=== PATIENT | male | born 1980 | race Two or more races ===

== ENCOUNTER 2023-04-21 09:42 | Emergency (ER) | payer BC, OTHER ==
[~2023-04-21] VITALS: Ht 175.3 cm; Wt 84.0 kg
[2023-04-21 11:08] VITALS: BP 117/80; PULSE 125; RESP 18; TEMP 97.4; O2SAT 97
[2023-04-21] MEDS ORDERED: LIDOCAINE 1% HCL (LOCAL ANESTH.) INJ 20ML MDV IJ ONE (11:15)
[2023-04-21] MEDS ORDERED: NAPR-746 PO (11:50)
[2023-04-21] MEDS ORDERED: CLIN300C70 PO (11:50)
[2023-04-21] MEDS ORDERED: TETANUS-DIPTH-ACEL PERTUSSIS 0.5ML SYR Tdap IM ONE (12:00)
[2023-04-21] MEDS ORDERED: cefTRIAXone SOD 1,000 MG VL IM ONE (12:00)
== END 2023-04-21 12:20 | disposition home or self-care (01) ==
LOC: ER 09:42
DX: S61.411A Laceration without foreign body of right hand, initial encounter (principal); Z88.0 Allergy status to penicillin; W54.0XXA Bitten by dog, initial encounter; Y93.89 Activity, other specified; Y92.89 Other specified places as the place of occurrence of the external cause; Y99.8 Other external cause status
CPT/HCPCS: 12004; 73130; 90471; 90715; 96372; 99284; J0696; J2001

== ENCOUNTER 2024-02-04 18:49 | Inpatient (IN) | payer BC ==
[~2024-02-04] VITALS: Ht 175.3 cm; Wt 85.7 kg
[~2024-02-04 18:49] MED LIST: CLIN1CAP70 PO; NAPR-746 PO
[2024-02-04 20:36] LABS: Urine Bacteria None Seen /hpf (None Seen)
[2024-02-04 20:41] LABS: Basophils # (auto) 0.1 10 ^3/uL (0-0.2); Eosinophils # (auto) 0 10 ^3/uL (0-0.8); Hemoglobin 13.6 g/dL (13.5-17.5); Lymphocytes # (auto) 4.1 10 ^3/uL (0.4-5.4)
[2024-02-04 20:42] LABS: Basophils % (auto) 0.6 % (0.0-2.0); Eosinophils % (auto) 0.3 % (0.0-7.0); Hematocrit 38.9 % (41.0-53.0); Lymphocytes % (auto) 45.4 % (10.0-50.0); Mean Corpuscular Hemoglobin 39.2 pg (28.0-32.0); Mean Corpuscular Volume 112.1 fL (80.0-100.0); Monocytes # (auto) 0.7 10 ^3/uL (0-1.3); Monocytes % (auto) 8.2 % (0.0-12.0); Neutrophils # (auto) 4.1 10 ^3/uL (1.6-8.6); Neutrophils % (auto) 45.5 % (37.0-80.0); Nucleated Red Blood Cells % 0.2 %; Red Blood Cells 3.47 10^6/uL (4.5-5.90); Red Cell Distribution Width 17.4 % (11.8-14.3); White Blood Cell 9.1 10^3/uL (4.4-10.8)
[2024-02-04 20:48] LABS: Urine Blood Negative /uL (Negative); Urine Clarity Clear (Clear); Urine Color Yellow (Yellow); Urine Mucus FEW (None Seen); Urine Protein, UAD TRACE (Negative); Urine Specific Gravity 1.019 (1.001-1.035); Urine Urobilinogen 2 mg/dL (Negative); Urine WBC 3 /hpf (0 - 3)
[2024-02-04 21:00] LABS: Amphetamine Screen, Urine Neg (NEGATIVE); Barbiturate Scree,Urine Neg (NEGATIVE); Benzodiazephine Screen, Urine Neg (NEGATIVE); Cannabinoid Screen, Urine Neg (NEGATIVE); Cocaine Screen, Urine Neg (NEGATIVE); Opiate Scree,Urine Neg (NEGATIVE); Phencyclidine Screen, Urine Neg (NEGATIVE)
[2024-02-04 21:02] LABS: Alanine Aminotransferase 109 U/L (7-40); Albumin 3.9 g/dL (3.2-4.8); Alkaline Phosphatase 126 U/L (46-116); Anion Gap 13 (5-15); Aspartate Aminotransferase 158 U/L (13-40); Bilirubin, Total 0.5 mg/dL (0.2-1.0); Calcium 9.2 mg/dL (8.7-10.4); Carbon Dioxide 25 mmol/L (20-30); Chloride 101 mmol/L (98-107); Glucose 169 mg/dL (74-106); Potassium 2.7 mmol/L (3.5-5.1); Sodium 139 mmol/L (136-145); Total Protein 6.5 g/dL (5.7-8.2)
[2024-02-04 21:04] LABS: BUN/Creatinine Ratio 8.6 (10.0-20.0); Blood Urea Nitrogen < 5 mg/dL (9-23)
[2024-02-04 21:07] LABS: Anisocytosis Slight; Large Platelets FEW; Macrocytosis Moderate; Platelet Estimate Adequa; Polychromasia Slight; Stomatocytes Few
[2024-02-04 21:09] LABS: Blood Alcohol 327.4 mg/dL (<10)
[2024-02-04] MEDS ORDERED: ACETAMINOPHEN 325 MG TAB PO PRN (22:30)
[2024-02-04] MEDS ORDERED: ONDANSETRON HCL 4 MG/2 ML VIAL IV PRN (22:30)
[2024-02-04] MEDS: SODIUM CHLORIDE 0.9% 1,000 ML IV SCH (23:13)
[2024-02-05] MEDS: FOLIC ACID 1 MG, MULTIPLE VITAMIN 10 ML, MAGNESIUM SULF SDV 50% 8 MEQ, THIAMINE INJ 100... INJ SCH (01:22)
[2024-02-05] MEDS: POTASSIUM CHL 20MEQ/100ML 100 ML IV ONE (01:23)
[2024-02-05] MEDS: POTASSIUM CHL 20MEQ/100ML 100 ML IV SCH (01:24)
[2024-02-05] MEDS: THIAMINE 100mg/ml INJ (200mg/2ml VIAL) ONE (01:24)
[2024-02-05] MEDS: MVI in SODIUM CHLORIDE 0.9% 1,010 ML ONE (01:24)
[2024-02-05] MEDS: MAGNESIUM SULFATE 1GM/100ML 100 ML IV SCH (01:25)
[2024-02-05] MEDS: hydrALAZINE HCL 20 MG/ML VL IV PRN (02:25)
[2024-02-05 02:44] VITALS: PULSE 111; RESP 22; O2SAT 96
[2024-02-05 03:49] VITALS: BP 151/78; PULSE 121; RESP 20; TEMP 98.1; O2SAT 98
[2024-02-05 06:23] LABS: Alanine Aminotransferase 105 U/L (7-40); Albumin 4.1 g/dL (3.2-4.8); Alkaline Phosphatase 138 U/L (46-116); Anion Gap 13 (5-15); Aspartate Aminotransferase 139 U/L (13-40); Carbon Dioxide 23 mmol/L (20-30); Chloride 104 mmol/L (98-107); Glucose 163 mg/dL (74-106); Potassium 3.3 mmol/L (3.5-5.1); Sodium 140 mmol/L (136-145)
[2024-02-05 06:24] LABS: Bilirubin, Direct 0.2 mg/dL (<0.3); Bilirubin, Total 0.7 mg/dL (0.2-1.0); Total Protein 6.8 g/dL (5.7-8.2)
[2024-02-05 06:27] LABS: BUN/Creatinine Ratio 9.6 (10.0-20.0); Blood Urea Nitrogen < 5 mg/dL (9-23)
[2024-02-05 07:40] VITALS: PULSE 121; RESP 22; O2SAT 96
[2024-02-05 07:42] LABS: Uric Acid 11.3 mg/dL (3.7-9.2)
[2024-02-05] MEDS: PANTOPRAZOLE 40 MG/10 ML VIAL INJ IV SCH (11:01)
[2024-02-05 13:29] LABS: Anion Gap 12 (5-15); Carbon Dioxide 24 mmol/L (20-30); Chloride 103 mmol/L (98-107); Potassium 3.4 mmol/L (3.5-5.1); Sodium 139 mmol/L (136-145)
[2024-02-05 13:35] LABS: Glucose 131 mg/dL (74-106)
[2024-02-05 13:37] LABS: BUN/Creatinine Ratio 8.5 (10.0-20.0); Blood Urea Nitrogen < 5 mg/dL (9-23)
[2024-02-05] MEDS: METOPROLOL TARTRATE 1MG/1ML-5ML VIAL IV PRN (14:37)
[2024-02-05] MEDS: LORazepam 2MG/ML-1ML VIAL IV ONE (15:35)
[2024-02-05 20:03] LABS: Alanine Aminotransferase 86 U/L (7-40); Alkaline Phosphatase 135 U/L (46-116); Anion Gap 8 (5-15); Calcium 9.3 mg/dL (8.7-10.4); Carbon Dioxide 28 mmol/L (20-30); Chloride 102 mmol/L (98-107); Glucose 118 mg/dL (74-106); Potassium 3.3 mmol/L (3.5-5.1); Sodium 138 mmol/L (136-145)
[2024-02-05 20:04] LABS: Aspartate Aminotransferase 95 U/L (13-40); Bilirubin, Total 1.2 mg/dL (0.2-1.0); Total Protein 6.7 g/dL (5.7-8.2)
[2024-02-05 20:06] LABS: BUN/Creatinine Ratio 9.3 (10.0-20.0); Blood Urea Nitrogen < 5 mg/dL (9-23)
[2024-02-05 21:15] VITALS: PULSE 122; O2SAT 96
[2024-02-05 23:49] VITALS: BP 151/78; PULSE 120; RESP 18; TEMP 98.1; O2SAT 98
[2024-02-06] MEDS: GABAPENTIN 300 MG CAP PO SCH (00:04)
[2024-02-06 05:00] VITALS: BP 153/103; PULSE 110; RESP 20; TEMP 98.8; O2SAT 94
[2024-02-06 08:00] VITALS: BP 163/108; PULSE 102; PULSE 110; PULSE 114; RESP 18; RESP 20; TEMP 98.4; O2SAT 97; O2SAT 98
[2024-02-06] MEDS: MULTIPLE VITAMIN TAB PO SCH (09:03)
[2024-02-06] MEDS: LORazepam 2MG/ML-1ML VIAL IV PRN (09:04)
[2024-02-06] MEDS: THIAMINE 100mg/ml INJ (200mg/2ml VIAL) IV SCH (09:04)
[2024-02-06 12:00] VITALS: BP 161/110; PULSE 110; RESP 20; TEMP 97.8; O2SAT 97
[2024-02-06 12:57] LABS: Alanine Aminotransferase 70 U/L (7-40); Albumin 3.6 g/dL (3.2-4.8); Alkaline Phosphatase 125 U/L (46-116); Anion Gap 5 (5-15); Aspartate Aminotransferase 76 U/L (13-40); BUN/Creatinine Ratio 10.4 (10.0-20.0); Blood Urea Nitrogen < 5 mg/dL (9-23); Calcium 9.2 mg/dL (8.7-10.4); Carbon Dioxide 26 mmol/L (20-30); Chloride 107 mmol/L (98-107); Glucose 119 mg/dL (74-106); Potassium 3.6 mmol/L (3.5-5.1); Sodium 138 mmol/L (136-145)
[2024-02-06 12:58] LABS: Bilirubin, Total 1.6 mg/dL (0.2-1.0); Total Protein 6.5 g/dL (5.7-8.2)
[2024-02-06] MEDS: cloNIDine HCL 0.1 MG TAB PO SCH (13:07)
[2024-02-06] MEDS: cloNIDine HCL 0.1 MG TAB PO ONE (13:07)
[2024-02-06 19:56] VITALS: PULSE 119; RESP 16; O2SAT 98
[2024-02-06 20:00] VITALS: PULSE 115
[2024-02-06] MEDS: PROPRANOLOL HCL 20 MG TAB PO SCH (20:56)
[2024-02-06 21:00] VITALS: BP 129/99; PULSE 125; RESP 20; TEMP 97.6; O2SAT 94
[2024-02-07 01:00] VITALS: BP 124/85; PULSE 110; RESP 20; TEMP 98; O2SAT 91
[2024-02-07 05:00] VITALS: BP 118/85; PULSE 94; RESP 20; TEMP 97.7; O2SAT 95
[2024-02-07] MEDS: PANTOPRAZOLE 40 MG TAB PO SCH (05:43)
[2024-02-07 08:00] VITALS: PULSE 107; PULSE 84; RESP 18; O2SAT 96
[2024-02-07 08:48] VITALS: BP 118/81; PULSE 90; RESP 20; TEMP 97.7; O2SAT 96
[2024-02-07] MEDS: THIAMINE HCL 100 MG TAB PO SCH (09:19)
[2024-02-07] MEDS ORDERED: MULTTAB99 PO (12:36)
[2024-02-07] MEDS ORDERED: PROP1TAB53 PO (12:36)
[2024-02-07] MEDS ORDERED: CLON0.1T PO (12:36)
[2024-02-07] MEDS ORDERED: PANT40TA57 PO (12:36)
[2024-02-07] MEDS ORDERED: GABA-1250 PO (12:36)
[2024-02-07] MEDS ORDERED: BLOO1KIT54 XX (12:37)
[2024-02-07 12:50] VITALS: BP 113/86; PULSE 91; RESP 20; TEMP 98; O2SAT 95
[2024-02-07 13:23] VITALS: BP 118/68; PULSE 94
[2024-02-08 09:21] LABS: Hepatitis B Core Total AB Negative (Negative)
[2024-02-08 15:27] LABS: Hepatitis A Ab IgM Negative; Hepatitis A Total Antibody Positive (Negative)
[2024-02-08 15:28] LABS: Hepatitis B Core IgM Negative; Hepatitis B Surface Antibody Negative (Negative); Hepatitis B Surface Antigen Negative (Negative); Hepatitis C Antibody Negative (Negative)
== END 2024-02-07 14:00 | disposition home or self-care (01) | DRG 641 ==
LOC: ER 18:49 → TELE 22:39 → OBSVTOIN 02-05 15:21 → TELE-WESTW 02-05 21:49
PROVIDERS: ADMIT Hospitalist; ATTEND Nurse Practitioner Family
DX: E87.6 Hypokalemia (principal); F10.139 Alcohol abuse with withdrawal, unspecified; M79.89 Other specified soft tissue disorders; Y90.8 Blood alcohol level of 240 mg/100 ml or more; R74.01 Elevation of levels of liver transaminase levels; R74.8 Abnormal levels of other serum enzymes; K75.81 Nonalcoholic steatohepatitis (NASH); Z88.0 Allergy status to penicillin; Z87.891 Personal history of nicotine dependence
CPT/HCPCS: 36415; 76705; 80048; 80053; 80074; 80076; 80307; 80320; 81001; 83690; 83735; 83880; 84550; 85025; 86704; 86706; 86708; 86803; 87340; 93306; G0378; J2470; J3480